=== PATIENT | male | born 1970 | race Caucasian/White ===

== ENCOUNTER 2023-07-19 06:01 | Day surgery (SDC) | payer MEDICAID, SELFPAY ==
[2023-07-19 06:14] VITALS: BMI 26.8
[2023-07-19 06:23] VITALS: BP 153/102; PULSE 65; RESP 16; TEMP 36.5; O2SAT 94
[2023-07-19] MEDS: LACTATED RINGERS 1000 ML 1,000 ML 100 ML IV (06:30)
[2023-07-19] MEDS: SODIUM CHLORIDE 0.9 % (FLUSH) 10 ML SYRINGE IVF (06:30)
[2023-07-19] MEDS: BUPIVACAINE 0.5% 30 ML 20 ML INJECTION (07:22)
--- NOTE | 2023-07-19 07:22 | CRLHL7_ITS ---
For Patients: As a result of the Century Cures Act, medical imaging exams and procedure reports are released immediately into your electronic medical record. You may view this report before your referring provider. If you have questions, please contact your health care provider. Indication: RT HAMMERTOE CORRECTION Technique: One fluoroscopic image of the right forefoot. Fluoroscopic time 3.7 seconds. IMPRESSION: Fluoroscopic guidance for hammertoe correction. Dictated by Sebas Chong MD @ 07/19/2023 8:29:14 AM (Electronically Signed)
[2023-07-19] MEDS: CEFAZOLIN 2 GM INJ IVP (07:25)
--- NOTE | 2023-07-19 07:40 | SUR.OPER ---
PATIENT QUESTIONS ANSWERED SATISFACTORILY PREOPERATIVELY.? PATIENT BROUGHT TO OR #1 PER CART.? Patient positioned supine on OR #1 bed.? The perioperative?team supported arms bilaterally on arm boards.? Final approval of positioning by surgeon.?
[2023-07-19 08:33] VITALS: BP 145/100; PULSE 56; RESP 16; TEMP 37.6; O2SAT 95
--- NOTE | 2023-07-19 08:41 | P.PCN_ITS ---
Procedure Note Date Seen: 07/19/23 Date of procedure: 07/19/23 Will [facility] bill your pro fee for this procedure?: No Pre-op diagnosis: Hammertoes 3, 4 and 5 right Post-op diagnosis: same Procedure: 1. hammertoe correction 4th toe right 2. hammertoe correction 5th toe right 3. flexor tenotomy 3rd toe right Procedure Description: hemostasis: Ankle tourniquet 250 mm Hg materials: 0.045 smooth K-wire x1 complications: None apparent indication for surgery: Patient has had ongoing pain in the toes the right foot. He is elective surgical correction. He states today the 3rd toe has been problematic as well would like it addressed. I reviewed the procedure, recovery, expectations and potential complications. These include but not limited to: Poor wound healing, infection, hardware irritation, nonunion, malunion, delayed union, continued pain, flail toe, floating toe, potential need for future surgery, deep venous thrombosis, pulmonary embolism and possible . He understands risks written consent was obtained. Site was marked. Procedure in detail : Patient is brought the operating room placed in a supine position. IV sedation was initiated local anesthetic injected into the right foot. Was prepped and draped in sterile fashion. standard time-out performed. The right foot was exsanguinated the tourniquet inflated. Stab incision was made just distal to the Plantar PIPJ with a 6100 [place] blade. flexor tendon was released. Linear incision was made over the 4th PIPJ through the skin and subcutaneous tissues. Blunt dissection to the joint capsule mediolateral. The extensor tendon and joint capsule released with a transverse incision. Medial and lateral collateral ligaments released. The head of the proximal phalanx and the base of the middle phalanx removed with an oscillating saw. A 0.045 smooth K- wire introduced to the base of middle phalanx driven out the tip of the toe. Fusion surfaces were held in position and the K-wire retrogradely drilled into the proximal phalanx. C-arm confirmed excellent position. The medial and lateral flares at the fusion site were reduced with the oscillating saw. K-wire was bent cut and capped. Wound irrigated normal sterile saline. The extensor tendon repaired with 4-0 Vicryl. Skin closed with 4-0 Prolene. Semi elliptical incision orientated from proximal lateral to distal medial was made over the 5th digit PIPJ. Skin ellipse was excised. Transverse incision made through the extensor tendon and joint capsule. The medial and lateral collateral ligaments released. The head of the proximal phalanx was resected with an oscillating saw. The medial aspect of the proximal phalanx and middle phalanx remodeled with the oscillating saw. The area was thoroughly irrigated normal sterile saline. Joint capsule was repaired with 4-0 Vicryl. Skin was repaired with 4-0 Prolene. Excellent position of the 5th toe was noted after closure. Sterile dressing was applied. Tourniquet was released and normal cap refill time returned to all digits. He was transferred from OR to same-day with vital signs stable and vascular status intact to the right foot. Postop shoe fitted. Will be discharged per Anesthesia. He was given written and verbal postoperative instructions. He is given oxycodone for pain. He is weight-bearing as tolerated. Anesthesia: MAC and local Surgeon: Zhen Ludwig DPM FACFAS Estimated blood loss (mL): 1 Pathology: none sent Condition: stable Disposition: same day
--- NOTE | 2023-07-19 08:55 | W.ANESCHARGE ---
Anesthesia Charges Start Date/Time Anesthesia Start Date: 07/19/23 Anesthesia Start Time: 07:15 Stop Date/Time Anesthesia Stop Date: 07/19/23 Anesthesia Stop Time: 08:36
[2023-07-19 08:58] VITALS: BP 145/100; PULSE 53; RESP 16; O2SAT 96
[2023-07-19 09:00] VITALS: BP 147/98; PULSE 52; RESP 16; O2SAT 95
[2023-07-19 09:15] VITALS: BP 144/100; PULSE 52; RESP 16; O2SAT 96
== END 2023-07-19 09:43 | disposition home or self-care (01) ==
PROVIDERS: PCP Family Medicine; Visit Provider Podiatrist
PROC: (CPT 28285; principal; 2023-07-19 07:15)
DX: M20.41 Other hammer toe(s) (acquired), right foot (principal)
CPT/HCPCS: 28285 ×3; 01480; 73620; 76000; J0665; J0690; J1100; J1885; J2250; J2405; J2704; J3010; J7120